=== PATIENT | male | born 1935 | race Two or more races ===

== ENCOUNTER 2017-04-22 07:57 | Day surgery (SDC) | payer OTHER ==
[~2017-04-22] VITALS: Ht 167.6 cm; Wt 81.6 kg
[~2017-04-22 07:57] MED LIST: ACET-1304 PO; ASPI81TA27 PO; DIPH2.5T73 PO; FENO145T20 OR; FURO40TA4 PO; GABA-339 PO; ISOS30TA4 PO; LISI10TA6 PO; LORA1TAB12 PO; METO25TA5 PO; MULTCHW OR; PANT1INJ3 PO; PRAV20TA3 PO; SACU1TAB PO; TRAM50TA2 PO
[2017-04-22] MEDS ORDERED: ANGIOMAX 250 MG VIAL IV ONE (08:43)
[2017-04-22] MEDS ORDERED: MIDAZOLAM HCL 1MG/1ML-2 ML VIAL ONE (08:44)
[2017-04-22] MEDS ORDERED: SODIUM CHL 0.9% 0 ML ONE (08:44)
[2017-04-22] MEDS ORDERED: fentaNYL CITRATE 100 MCG/2 ML VL ONE (08:45)
[2017-04-22] MEDS ORDERED: LIDOCAINE 2%HCL (LOCAL ANESTH.) INJ 20ML MDV ONE (09:06)
== END 2017-04-22 13:22 | disposition home or self-care (01) ==
LOC: CATH 07:57
PROVIDERS: ATTEND Internal Medicine Cardiovascular Disease
DX: I25.10 Atherosclerotic heart disease of native coronary artery without angina pectoris (principal); I50.9 Heart failure, unspecified; Z95.1 Presence of aortocoronary bypass graft
CPT/HCPCS: 93458; C1760; C1894; J1644; J2250; J3010; 99152; 99153